=== PATIENT | male | born 2005 | race Two or more races ===

== ENCOUNTER 2024-10-24 15:27 | Emergency (ER) | payer SELFPAY ==
[2024-10-24 17:04] VITALS: BP 132/66; PULSE 66; RESP 18; TEMP 36.9; O2SAT 99; BMI 24.4
--- NOTE | 2024-10-24 17:07 | ED.SKABFB ---
HPI - Skin/Abscess/Foreign Bdy General Chief complaint: Urogenital-Male Stated complaint: lump on scrotal area Time Seen by Provider: 10/24/24 21:19 Source: patient Mode of arrival: ambulatory Limitations: no limitations History of Present Illness ED Provider: HPI narrative: Patient complaining of small lump on the scrotum which been there off and on for last 1 year got worse lately for last few days with some pus discharge Related Data Previous Rx's ?Medication ?Instructions ?Recorded doxycycline hyclate 100 mg tablet 100 mg PO BID #20 tabs 10/24/24 Allergies Allergy/AdvReac Type Severity Reaction Status Date / Time No Known Allergies Allergy Verified 10/24/24 17:06 Review of Systems Review of Systems: Yes all other systems are reviewed and are negative [facility] Social History Social History Advance Directives: No Advance Directives Information Provided: No Physical Exam Vital Signs: Vital Signs: Last Vital Signs Temp 98.0 F 10/24/24 21:52 Pulse 72 10/24/24 21:52 Resp 16 10/24/24 21:52 BP 141/72 H 10/24/24 21:52 Pulse Ox 99 10/24/24 21:52 O2 Del Method Room Air 10/24/24 21:52 BMI result Body Mass Index 24.4 : Male genitals images: 1. Small folliculitis draining pus no surrounding inflammation has slight induration no abscess palpable Course Course Course Narrative: This is a Rapid Medical Exam performed in triage by Diamante Murphy PA-C. Full HPI, ROS and PE to be performed by primary ED provider. 19 yo M presenting to the ED c/o lumps on scrotum with drainage x few weeks, denies scrotal pain/swelling PE: area not evaluated in triage Plan: UA, CTNG Medications Administered Discontinued Medications Generic Name Dose Route Start Last Admin Trade Name Freq PRN Reason Stop Dose Admin Doxycycline Monohydrate 100 mg 10/24/24 21:35 10/24/24 21:50 Doxycycline Monohydrate 100 Mg Capsule PO 10/24/24 21:36 100 mg ONCE ONE Administration Medical Decision Making Medical Decision Making [facility] Narrative: Patient with folliculitis scrotum which is going on for last 1 year off and on will prescribe doxycycline Lab Data [facility] Lab Attestation statement: I reviewed the patient's lab results. Labs: Lab Results 10/24/24 Range/Units 21:06 Urine Color Yellow Urine Appearance Clear Urine pH 6.5 (5.0-9.0) Ur Specific [place] 1.020 (1.005-1.025) Urine Protein Negative (Neg-Trace) mg/dL Urine Glucose (UA) Negative (Negative) mg/dL Urine Ketones Trace (Negative) mg/dL Urine Blood Negative (Negative) Urine Nitrite Negative (Negative) Ur Leukocyte Esterase Negative (Negative) Discharge Plan Discharge Clinical Impression: Folliculitis Patient Disposition: Home, Self-Care Instructions: Folliculitis (ED) Additional Instructions: Take antibiotic as prescribed and follow with PCP Prescriptions: New doxycycline hyclate 100 mg tablet 100 mg PO BID Qty: 20 0RF Interventions: ED Discharge Assessment Last Done: 10/24/24 21:52 Discharge Date/Time: 10/24/24 21:52 Print Language: Indonesian
[2024-10-24 21:07] VITALS: BP 141/72; PULSE 72; RESP 16; TEMP 36.7; O2SAT 99
[2024-10-24 21:17] LABS: Appearance Urine Clear; Color Urine Yellow; Glucose Urine UA Negative (Negative); Leukocyte Esterase Urine Negative (Negative); Nitrite Urine Negative (Negative); PH 6.5 (5.0-9.0); Urine Blood Negative (Negative); Urine Ketones Trace mg/dL (Negative); Urine Protein Negative (Neg-Trace)
[2024-10-24] MEDS: Doxycycline Monohydrate 100 MG CAPSULE PO (21:50)
[2024-10-24 21:52] VITALS: BP 141/72; PULSE 72; RESP 16; TEMP 36.7; O2SAT 99
[2024-10-25 09:10] LABS: CT PCR NOT DETECTED (Not Detect.); NG PCR NOT DETECTED (Not Detect.)
== END 2024-10-24 21:52 | disposition home or self-care (01) ==
PROVIDERS: Physician Assistant; Emergency Provider Internal Medicine
DX: L73.8 Other specified follicular disorders (principal); L72.9 Follicular cyst of the skin and subcutaneous tissue, unspecified
CPT/HCPCS: 81003; 87491; 87591; 99283; 99284